=== PATIENT | male | born 1965 | race Asian ===

== ENCOUNTER 2019-01-16 12:14 | Day surgery (SDC) | payer OTHER ==
[~2019-01-16] VITALS: Ht 165.1 cm; Wt 62.1 kg
[2019-01-16] MEDS ORDERED: NO ACTIVE MEDS (13:39)
[2019-01-16 13:56] VITALS: Ht 165.1 cm; Wt 62.1 kg
--- NOTE | 2019-01-16 13:57 | PREAC ---
Date/Time of Note Date/Time of Note DATE: 01/16/19 TIME: 13:57 Anesthesia Eval and Record Evaluation Time Pre-Procedure Interview DATE: 01/16/19 TIME: 13:57 Age 53 Sex male NPO: 8 hrs Preoperative diagnosis Colon screening Planned procedure Colonoscopy Past Medical History Past Medical History: None Surgery & Anesthesia Issues No known issue Meds Anticoagulation: No Beta Ilir within 24 hr: No Reason Beta Ilir not given: Pt. not on B-Ilir Reported Medications [No Active Meds] No Conflict Check 01/16/19 Meds reviewed: Yes Allergies Allergies Reviewed: Yes Labs/Studies Labs Reviewed: Reviewed by anesthesiologist test: N/A Pre-procedure Exam Airway: Adequate mouth opening Mallampati: Mallampati I Teeth: Normal Lung: Normal Heart: Normal ASA Physical Status ASA physical status: 1 Emergency: None Planned Anesthetic General/MAC: MAC Planned Pain Management Parenteral pain med Pre-operative Attestations Prior to commencing anesthesia and surgery, the patient was re-evaluated, there was verification of: *The patient's identity *The results of appropriate recent lab work and preoperative vital signs *The above evaluation not changing prior to induction *Anesthetic plan, risk benefits, alternative and complications discussed with patient/family; questions answered; patient/family understands, accepts and wishes to proceed. FE AMADOR MD Jan 16, 2019 13:57
[2019-01-16 13:58] VITALS: BP 146/91; PULSE 59; RESP 16
[2019-01-16] MEDS ORDERED: PROPOFOL 20 ML ONE (14:08)
[2019-01-16 14:38] VITALS: BP 116/72; PULSE 60; RESP 20
--- NOTE | 2019-01-16 14:40 | HPN ---
Date/Time of Note Date/Time of Note DATE: 01/16/19 TIME: 14:40 Interval H&P Admission Note Pt. seen H&P reviewed: No system changes EMMANUEL LOPEZ Jan 16, 2019 14:40
[2019-01-16 14:48] VITALS: BP 109/69; PULSE 58; RESP 20
[2019-01-16 14:58] VITALS: BP 121/80; PULSE 60; RESP 20
[2019-01-16 15:11] VITALS: BP 131/60; PULSE 62; RESP 20
--- NOTE | 2019-01-16 15:53 | PAC ---
Date/Time of Note Date/Time of Note DATE: 01/16/19 TIME: 15:52 Post-Anesthesia Notes Post-Anesthesia Note Last documented vital signs Vital Signs Date Temp Pulse Resp B/P (MAP) Pulse Ox O2 O2 Flow FiO2 Time Delivery Rate 01/16/19 62 20 131/60 100 15:11 (83) 01/16/19 98.5 Room Air 13:58 Activity: WNL Respiratory function: WNL Cardiovascular function: WNL Mental status: Baseline Pain reasonably controlled: Yes Hydration appropriate: Yes Nausea/Vomiting absent: Yes Comments BT: 98.3 FE AMADOR MD Jan 16, 2019 15:53
== END 2019-01-16 15:44 | disposition home or self-care (01) ==
LOC: GIL 12:14
PROVIDERS: ATTEND Internal Medicine Gastroenterology
DX: Z12.11 Encounter for screening for malignant neoplasm of colon (principal); K64.8 Other hemorrhoids; K57.30 Diverticulosis of large intestine without perforation or abscess without bleeding
CPT/HCPCS: 45378; Z7610